=== PATIENT | female | born 1965 ===

== ENCOUNTER 2017-05-09 08:37 | Emergency (ER) | payer OTHER ==
[2017-05-09 08:53] VITALS: PULSE 63; RESP 20; TEMP 97.3; O2SAT 95
--- NOTE | 2017-05-09 09:48 | C.PDOC ---
History Of Present Illness 51 y/o female presents to ED with complaints of rash intermittently for 2 months currently on right elbow region for 4 days. Patient states rash appears in different parts of the body and has been seen previously at ED for symptoms, given prednisone with no relief. Patient denies new detergents, known allergens , fever, chills, vomiting or any other complaints at this time. Time Seen by Provider: 05/09/17 09:22 Chief Complaint (Nursing): Allergic Reaction History Per: Patient History/Exam Limitations: no limitations Onset/Duration Of Symptoms: Days Current Symptoms Are (Timing): Still Present Past Medical History Reviewed: Historical Data, Nursing Documentation, Vital Signs Vital Signs: Last Vital Signs Temp 97.3 F L 05/09/17 08:49 Pulse 63 05/09/17 08:49 Resp 20 05/09/17 08:49 BP Pulse Ox 95 05/09/17 10:37 - Medical History PMH: No Chronic Diseases Surgical History: No Surg Hx Family History: States: No Known Family Hx - Social History Hx Alcohol Use: No Hx Substance Use: No Review Of Systems Except As Marked, All Systems Reviewed And Found Negative. Skin: Positive for: Rash Physical Exam - Physical Exam Appears: Non-toxic, No Acute Distress Skin: Warm, Dry, Rash (erythematous macular urticaria to right elbow with early celulitic changes. No crepitus ) Head: Atraumatic, Normacephalic Eye(s): bilateral: Normal Inspection Oral Mucosa: Moist Throat: Normal, No Erythema, No Exudate Cardiovascular: Rhythm Regular Respiratory: Normal Breath Sounds, No Rales, No Rhonchi, No Wheezing Extremity: Normal ROM, Capillary Refill (<2 seconds), No Deformity Pulses: Left Brachial: Normal, Right Brachial: Normal Neurological/Psych: Oriented x3 ED Course And Treatment O2 Sat by Pulse Oximetry: 95 (RA) Pulse Ox Interpretation: Normal Medical Decision Making Medical Decision Making: Assessment: Allergic reaction vs Early cellulitis Progress: Patient d/c with slurry tank tender phone number and advised to follow up with slurry tank tender. Disposition Counseled Patient/Family Regarding: Diagnosis, Need For Followup, Rx Given - Disposition Referrals: Faizan Bingham MD [Medical Doctor] - Kavon Juan MD [Medical Doctor] - Blake Pederson MD [Medical Doctor] - [facility] [Outside] Disposition: HOME/ ROUTINE Disposition Time: 09:47 Condition: STABLE Additional Instructions: follow up with slurry tank tender in 2 days call to make an appointment take medications as prescribed return to ER if symptoms worsens or progress Prescriptions: Cephalexin [Keflex] 500 mg PO QID #40 capsule Loratadine [Claritin] 10 mg PO DAILY PRN #15 tab PRN Reason: Other predniSONE [predniSONE Tab] 50 mg PO DAILY #4 tab Instructions: Hives (DC), Cellulitis (Skin Infection), Adult (DC) Forms: Gen Discharge Inst [place], [facility] ([place]) Print Language: VIET[place]ESE - Clinical Impression Clinical Impression: Urticaria, Cellulitis - Scribe Statement The provider has reviewed the documentation as recorded by the Chapin Jaquez All medical record entries made by the Chapin were at my direction and personally dictated by me. I have reviewed the chart and agree that the record accurately reflects my personal performance of the history, physical exam, medical decision making, and the department course for this patient. I have also personally directed, reviewed, and agree with the discharge instructions and disposition.
== END 2017-05-09 09:50 | disposition home or self-care (01) ==
LOC: C.ER 08:37
DX: L50.9 Urticaria, unspecified (principal); L03.113 Cellulitis of right upper limb